=== PATIENT | female | born 1990 | race Caucasian/White ===

== ENCOUNTER 2017-05-18 22:38 | Inpatient (IN) | payer BC, OTHER ==
[~2017-05-18] VITALS: Ht 180.3 cm; Wt 70.8 kg
[2017-05-18] MEDS ORDERED: DICYCLOMINE HCL 20 MG TABLET PO PRN (22:45)
[2017-05-18] MEDS ORDERED: BUPRENORPHINE HCL 2 MG TAB.SUBL SL PRN (22:45)
[2017-05-18] MEDS ORDERED: ACETAMINOPHEN 325 MG TABLET PO PRN (22:45)
[2017-05-18] MEDS ORDERED: LOPERAMIDE HCL 2 MG CAPSULE PO PRN ×2 (22:45)
[2017-05-18] MEDS ORDERED: DIAZEPAM 5 MG TABLET PO PRN (22:45)
[2017-05-18] MEDS ORDERED: MIRALAX 17 GM POWD.PACK PO PRN (22:45)
[2017-05-18] MEDS ORDERED: DIAZEPAM 10 MG TABLET PO PRN (22:45)
[2017-05-18] MEDS ORDERED: MAGNESIUM HYDROXIDE 30 ML LIQUID UDC PO PRN (22:45)
[2017-05-18] MEDS ORDERED: LORAZEPAM 2 MG/1 ML VIAL IM PRN (22:45)
[2017-05-18] MEDS ORDERED: MAG HYDROX/AL HYDROX/SIMETH 30 ML LIQUID UDC PO PRN (22:45)
[2017-05-18] MEDS ORDERED: diphenhydrAMINE 50 MG CAPSULE PO PRN (22:45)
[2017-05-18] MEDS ORDERED: ONDANSETRON 4 MG/2 ML VIAL IM PRN (22:45)
[2017-05-19 00:15] VITALS: BP 116/60
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
[2017-05-19 01:05] LABS: BASOPHILS % (AUTO) 0.6 % (0.0-2.0); EOSINOPHILS # (AUTO) 0.4 K/uL (0.0-0.7); EOSINOPHILS % (AUTO) 5.7 % (0.0-7.0); HEMATOCRIT 39.7 % (37-47); HEMOGLOBIN 13.1 G/DL (12.0-16.0); LYMPHOCYTES # (AUTO) 2.9 K/UL (0.8-4.8); LYMPHOCYTES % (AUTO) 41.3 % (20.5-51.5); MEAN CORPUSCULAR HEMOGLOBIN 27.9 UUG (27.0-31.0); MEAN CORPUSCULAR HGB CONC 33 g/dL (32.0-37.0); MEAN CORPUSCULAR VOLUME 84.6 FL (81.0-99.0); MONOCYTES # (AUTO) 0.4 K/UL (0.1-1.30); MONOCYTES % (AUTO) 5.7 % (0.0-11.0); NEUTROPHILS # (AUTO) 3.2 K/UL (1.8-8.9); NEUTROPHILS % (AUTO) 46.7 % (38.5-71.5); PLATELET COUNT (AUTO) 242 K/UL (150-450); WHITE BLOOD COUNT (AUTO) 6.9 K/UL (4.0-11.2)
[2017-05-19 01:18] LABS: ALANINE AMINOTRANSFERASE 80 U/L (14-59); ALKALINE PHOSPHATASE 61 U/L (50-136); ASPARTATE AMINOTRANSFERASE 41 U/L (15-37); BILIRUBIN,TOTAL 0.2 mg/dL (0.2-1.0); CARBON DIOXIDE 28 mmol/L (21-32); CHLORIDE 100 mmol/L (98-107); CREATININE 0.6 mg/dL (0.6-1.3); GLUCOSE 110 mg/dL (74-106); MAGNESIUM 1.9 mg/dL (1.8-2.4); POTASSIUM 3.9 mmol/L (3.5-5.1); TOTAL PROTEIN, SERUM 7.2 g/dL (6.4-8.2); UREA NITROGEN, BLOOD 15 mg/dL (7-18)
[2017-05-19 01:29] LABS: ETHANOL < 3 MG/DL (0-0)
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
[2017-05-19] MEDS ORDERED: ALBU8.5H8 INH (02:37)
[2017-05-19] MEDS ORDERED: PARO25TA16 PO (02:37)
[2017-05-19] MEDS ORDERED: PRAZ5CAP2 PO (02:37)
[2017-05-19] MEDS ORDERED: MIRT30TA PO (02:37)
[2017-05-19] MEDS ORDERED: CARI350T PO (02:37)
[2017-05-19 02:46] LABS: *AMPHETAMINE, URINE NEGATIVE (NEGATIVE); *BARBITURATE, URINE NEGATIVE (NEGATIVE); *CANNABINOID, URINE NEGATIVE (NEGATIVE); *COCCAINE, URINE POSITIVE (NEGATIVE); *OPIATE, URINE POSITIVE (NEGATIVE); *PHENCYCLIDINE SCREEN,URINE NEGATIVE (NEGATIVE)
[2017-05-19 03:00] LABS: *URINE HCG, QUAL NEGATIVE (NEGATIVE)
[2017-05-19 04:00] VITALS: BP 111/68
--- NOTE | 2017-05-19 04:00 | NUR ---
0400 COWS and CIWA deferred COWS and CIWA ordered Q4HWA. Pt is lying in bed resting with eyes closed. Respirations even and unlabored. Vital signs obtained. Safety measures in place.
--- NOTE | 2017-05-19 07:15 | NUR ---
END OF SHIFT Report provided to day shift nurse. Pt is lying in bed resting. He is a 20 yo male admitted to [facility] on 05/16 for Opiate dependence. He is A&O x4 and ambulatory. NKA, full code status, and on a regular diet. PMH of seizure x2 last year not r/t withdrawal. On admission he reported using heroin 0.5-1 gram per day and marijuana. 4 day subutex taper started 05/17. PRN Seroquel administered. Last COWS 4. He drank 480mL and slept for 7 hours. Fall and seizure precautions in place. Bed is down with call light in reach.
--- NOTE | 2017-05-19 07:25 | NUR ---
END OF SHIFT Report provided to day shift nurse. Pt is lying in bed resting. She is a 26 yo female admitted to [facility] today at 0057 for BZD and Opiate dependence. Last used 05/18 at 2130. Minimal s/s of withdrawal. COWS 3 and CIWA 1 admission. No medications administered. She drank 500mL and slept for 4 hours.
--- NOTE | 2017-05-19 07:30 | NUR ---
START OF SHIFT Pt is a 26 yr old female, AA&OX3. Pt is a newly admit to [facility] for Benzo/Opiate Dependence and is on 5 day Valium and 5 days Subutex taper starting today on 05/19/17. Received report from overnight houseperson nurse. Pt is full code, vegetarian diet and allergies to Latex. No PRN's were given during the night. Last COWS score was 3 and CIWA score was 1. Pt slept for 4 hrs. Pt is on fall and seizure precautions. Pt is currently in bed resting with respirations even and unlabored. bed kept in low position and locked with side rails up x2. Call light is within reach. Will continue to monitor.
[2017-05-19 08:00] VITALS: BP 102/61
[2017-05-19] MEDS: CLONIDINE HCL 0.1 MG TABLET PO PRN ×2 (08:35→17:32)
[2017-05-19] MEDS: METHOCARBAMOL 750 MG TABLET PO PRN ×2 (08:35→17:32)
[2017-05-19] MEDS: IBUPROFEN 600 MG TABLET PO PRN ×2 (08:35→17:32)
--- NOTE | 2017-05-19 08:35 | NUR ---
PRN GIVEN/ REFUSED MEDICATION Pt c/o severe general body aches 8/10 and increase anxiety. Clonidine 0.1mg PO PRN, Motrin 600mg PO PRN, and Robaxin 750mg PO PRN was given as ordered. Medication jacobo well. Encouraged increase fluid intake. Pt also refused to take Subutex 4mg SL as scheduled at 0900. COWS score was noted at 14 at 0800. Pt states she feels she is not ready to take Subutex. Dr. Robison was made aware.
[2017-05-19] MEDS: BUPRENORPHINE HCL 2 MG TAB.SUBL SL SCH ×4 (08:36→21:00)
[2017-05-19] MEDS ORDERED: TUBERCULIN,PURIF.PROT.DERIV. 5 TU/0.1 ML TEST ID ONE (09:00)
[2017-05-19] MEDS ORDERED: DIAZEPAM 10 MG TABLET PO SCH (09:00)
--- NOTE | 2017-05-19 09:35 | NUR ---
PRN RE-ASSESSMENT Clonidine PRN, Motrin PRN and Robaxin PRN was mildly effective. Pt continues to c/o muscle aching and anxiety. Pt was encouraged to attend group . Will continue to monitor.
[2017-05-19 12:00] VITALS: BP 132/70
[2017-05-19] MEDS ORDERED: PROAIR INH PRN (12:00)
[2017-05-19] MEDS: PHENOBARBITAL 60 MG TABLET PO SCH ×2 (13:17→15:29)
--- NOTE | 2017-05-19 14:15 | NUR ---
PRN GIVEN Pt c/o increase anxiety. CIWA score was 7. Valium 5mg PO PRN was given as ordered. Medication jacobo well. Will continue to monitor.
[2017-05-19] MEDS ORDERED: GABAPENTIN 300 MG CAPSULE PO ONE (15:00)
--- NOTE | 2017-05-19 15:15 | NUR ---
PRN RE-ASSESSMENT Valium 5mg PO PRN was effective. CIWA score is 4. 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 Encouraged increase fluid intake. Will continue to monitor.
[2017-05-19 16:00] VITALS: BP 126/85
--- NOTE | 2017-05-19 17:32 | NUR ---
PRN GIVEN Pt c/o anxiety and sever muscle aching 10/10. Facial grimacing is observed. Clonidine 0.1mg PO PRN, Robaxin 750mg PO PRN and Motrin 600mg PO PRN. Medication was jacobo well. Encouraged increased fluid intake. will continue to monitor.
[2017-05-19] MEDS: DIAZEPAM 10 MG TABLET PO PRN (18:43)
[2017-05-19] MEDS: ONDANSETRON ODT 4 MG TAB.RAPDIS SL PRN (18:48)
--- NOTE | 2017-05-19 19:00 | NUR ---
PRN'S GIVEN/END OF SHIFT Pt was observed with increase anxiety and noted with episodes of crying. Pt stating "I am withdrawing from benzo's" Pt is observed with fine tremors and facial sweats and c/o nausea. CIWA score was 14. Valium 10mg PO PRN was given at 1843 and Zofran 4mg SL PRN was given at 1848. Medication jacobo well. Pt was encouraged to drink plenty of fluids. Pt is on fall and seizure precautions. Call light is within reach. Last COWS score was 10 at 1600. Endorsed to shift nurse manager nurse to continue to monitor.
--- NOTE | 2017-05-19 19:45 | NUR ---
START OF SHIFT Received report from day shift nurse. Pt is walking in the halls. She is a 26 yo female admitted to [facility] early today for Opiate, BZD, and Soma dependence. She is A&O x4 and ambulatory. Allergic to latex, full code status, and on a regular vegetarian diet. PMH of asthma, seizures, migraines, chronic back pain, insomnia, anxiety, depression, and PTSD. On admission she reported using xanax 2mg per day, klonopin 4mg per day, heroin 2-6 grams per day, and Soma 350mg 6 tabs per day. 5 day phenobarbital taper started today. 5 day Subutex taper scheduled to start today and patient has refused all doses so far. She is tearful at times, reports anxiety, and back pain. Provided support. Fall and seizure precautions in place. Bed is down with call light in reach.
--- NOTE | 2017-05-19 19:46 | NUR ---
PRN Valium and Zofran reassessment PRN Zofran effective. Pt reports nausea is relieved. PRN Valium effective. Pt reports feeling somewhat more relaxed. Tremors are reduced and she is less agitated. CIWA score 4.
[2017-05-19 20:00] VITALS: BP 128/73
[2017-05-19] MEDS ORDERED: PHENOBARBITAL 60 MG TABLET PO SCH (21:00)
[2017-05-19] MEDS: PRAZOSIN HCL 1 MG CAPSULE PO SCH (21:00)
[2017-05-19] MEDS ORDERED: MIRTAZAPINE 15 MG TABLET PO SCH (21:00)
[2017-05-19] MEDS: GABAPENTIN 300 MG CAPSULE PO SCH (21:45)
[2017-05-20] VITALS (7 sets, daily range): BP systolic 99–135; BP diastolic 62–88
--- NOTE | 2017-05-20 | NUR ---
0000 COWS and CIWA deferred COWS and CIWA ordered Q4HWA. Pt is lying in bed resting with eyes closed. Respirations even and unlabored. Vital signs obtained. Safety measures in place.
[2017-05-20] MEDS ORDERED: BUPRENORPHINE HCL 2 MG TAB.SUBL SL ONE ×2 (05:15→05:33)
--- NOTE | 2017-05-20 05:22 | NUR ---
One time Subutex Pt woke up and reported chills, hot and cold flashes, body aches, and runny nose. She is observed to be fidgety with moderate tremors, flushed skin, and pupils so dilated. COWS score 24. One time Subutex administered per orders.
--- NOTE | 2017-05-20 05:52 | NUR ---
PRN Subutex reassessment PRN Subutex somewhat effective. Pt reports chills and hot/cold flashes have decreased. Tremors are reduced. COWS score 12.
[2017-05-20] MEDS: METHOCARBAMOL 750 MG TABLET PO PRN (06:05)
[2017-05-20] MEDS: ONDANSETRON ODT 4 MG TAB.RAPDIS SL PRN (06:05)
[2017-05-20] MEDS: DIAZEPAM 10 MG TABLET PO PRN (06:05)
--- NOTE | 2017-05-20 06:06 | NUR ---
PRN Valium, Zofran, Bentyl, and Robaxin Pt reports increased anxiety, nausea, and stomach cramps. She is observed to be restless. CIWA score 11. PRN Valium, Zofran, Bentyl, and Robaxin administered.
--- NOTE | 2017-05-20 07:06 | NUR ---
PRN Valium, Zofran, Bentyl, and Robaxin reassessment PRN's effective. Pt is lying in bed resting with eyes closed. Respirations even and unlabored. Unable to reassess COWS and CIWA. Safety measures in place.
--- NOTE | 2017-05-20 07:55 | NUR ---
Start of shift note; Received report from night nurse. Patient is a 26 year old female admitted on 05/18/17 for Benzodiazepine and Opiate dependence. Patient was placed on a Phenobarbital and Subutex tapers. Patient reported history of asthma, seizures, migraines, insomnia, anxiety, depression, PTSD, night tremors and chronic back pain. Patient's last COWS is 12 and last CIWA is 11 per endorsement.Patient is allergic to latex. Patient is on fall and seizure precaution. Bed in lowest position, call light within reach.
[2017-05-20] MEDS: BUPRENORPHINE HCL 2 MG TAB.SUBL SL SCH ×3 (08:55→20:03)
[2017-05-20] MEDS: PAROXETINE HCL 20 MG TABLET PO SCH (08:55)
[2017-05-20] MEDS: PHENOBARBITAL 60 MG TABLET PO SCH ×3 (08:55→20:01)
[2017-05-20] MEDS: GABAPENTIN 300 MG CAPSULE PO SCH ×3 (08:56→20:02)
[2017-05-20] MEDS ORDERED: DIAZEPAM 10 MG TABLET PO SCH (09:00)
[2017-05-20] MEDS: DICYCLOMINE HCL 20 MG TABLET PO SCH ×2 (14:10→20:03)
[2017-05-20] MEDS: BACLOFEN 10 MG TABLET PO SCH ×2 (14:10→20:02)
[2017-05-20] MEDS ORDERED: CLONIDINE HCL 0.1 MG TABLET PO ONE (15:00)
--- NOTE | 2017-05-20 18:11 | NUR ---
End of shift note; Patient is AOX4. Patient is a 26 year old female admitted on 05/18/17 for Benzodiazepine and Opiate dependence. Patient was placed on a Phenobarbital and Subutex tapers. Patient reported history of asthma, seizures, migraines, insomnia, anxiety, depression, PTSD, night tremors and chronic back pain. Patient is allergic to latex. Patient is on fall and seizure precaution. Bed in lowest position, call light within reach. Patient's last COWS score is 7 and CIWA score is 6. Patient remained compliant with treatment plan and medication regime. Medications were effective in reducing withdrawal symptoms. Met all needs.
--- NOTE | 2017-05-20 19:00 | NUR ---
Start of Shift Notes: Report received from day shift nurse. Pt is a 26F, admitted for Opiate/Benzo/Soma Dependence on 05/19/17. Pt was in the room upon the start of shift. Pt is AOx4 without s/s of acute distress. Pt currently c/o generalized body aches at this time. Pt is full code, on regular diet, and on fall/seizure precautions. Pt noted with allergy to Latex and natural rubber. Pt reports hx of Asthma, Seizures, Migraines, Insomnia, Anxiety, Depression, PTSD, and Night Tremors. Pt is currently on 5-day Subutex taper and 5-day Phenobarbital taper to manage withdrawal symptoms. Per day shift nurse last COWS was 7 and last CIWA was 6 at 1600. Bed in lowest position. Side rails up x2. Call light functioning and within reach. All needs attended and met. Will continue to monitor.
--- NOTE | 2017-05-20 19:25 | NUR ---
Toradol PRN: Pt c/o 04/05 Generalized body pain especially on lower back. Pt stated that she also feels sciatica pain. 30mg Toradol IM PRN given as ordered. Will continue to monitor.
[2017-05-20] MEDS: KETOROLAC TROMETHAMINE 30 MG INJ IM PRN (19:29)
[2017-05-20] MEDS: CLONIDINE HCL 0.1 MG TABLET PO SCH (20:02)
[2017-05-20] MEDS: PRAZOSIN HCL 1 MG CAPSULE PO SCH (20:09)
--- NOTE | 2017-05-20 20:30 | NUR ---
Toradol PRN Reassessment: Pt stated that the Toradol in combination with the routine 2100 dose medications were effective in dealing with pain. Pain level 0/10 at this time. Will continue to monitor.
[2017-05-20] MEDS ORDERED: MIRTAZAPINE 15 MG TABLET PO SCH (21:00)
[2017-05-21] VITALS: BP 121/70
[2017-05-21 04:00] VITALS: BP 114/56
[2017-05-21 05:06] LABS: HEPATITIS B SURFACE AG Negative (Negative)
[2017-05-21] MEDS: CLONIDINE HCL 0.1 MG TABLET PO PRN (06:58)
[2017-05-21 07:00] VITALS: BP 128/87
[2017-05-21] MEDS: KETOROLAC TROMETHAMINE 30 MG INJ IM PRN (07:06)
--- NOTE | 2017-05-21 07:06 | NUR ---
Toradol PRN and Clonidine PRN: Pt c/o generalized body pain and anxiety. Pain 10/10. Toradol PRN and Clonidine PRN given as ordered. Will endorse reassessment to day shift nurse.
--- NOTE | 2017-05-21 07:25 | NUR ---
End of Shift Notes: Pt is 26F, admitted for Opiate/Benzo/Soma Dependence on 05/19/17. Pt is AOx4 without s/s of acute distress. Pt is full code, on regular diet, and on fall/seizure precautions. Pt noted with allergy to Latex and natural rubber. Pt reports hx of Asthma, Seizures, Migraines, Insomnia, Anxiety, Depression, PTSD, and Night Tremors. Pt is currently on 5-day Subutex taper and 5-day Phenobarbital taper to manage withdrawal symptoms. Pt slept for 8 hours. Respirations even and unlabored. Last COWS score was 2 and last CIWA score was 3 at 0400. Pt c/o generalized body pain and anxiety during the shift. PRN Toradol and PRN Clonidine given. No N/V noted during the shift. Fall and Sz precautions observed. Bed in lowest position. Side rails up x2. Call light functioning and within reach. All needs attended and met. Will endorse to day shift nurse.
[2017-05-21 08:00] VITALS: BP 119/65
--- NOTE | 2017-05-21 08:06 | NUR ---
Start of shift note; Received report from night nurse. Patient is a 26 year old female admitted on 05/18/17 for Benzodiazepine and Opiate dependence. Patient was placed on a Phenobarbital and Subutex tapers. Patient reported history of asthma, seizures, migraines, insomnia, anxiety, depression, PTSD, night tremors and chronic back pain. Patient's last COWS is 2 and last CIWA is 3 per endorsement.Patient is allergic to latex. Patient stated her Toradol & Clonidine were effective, slight improvement of pain noted currently rated 8/10 on pain scale and less agitation noted. Patient is on fall and seizure precaution. Bed in lowest position, call light within reach.
--- NOTE | 2017-05-21 08:48 | NUR ---
MD communication; Patient stated "I want to leave AMA, i don't want to stay here anymore." Redirected patient as needed. Educated patient regarding the risk and consequences of leaving AMA and not completing treatment plan, patient verbalized understanding. MD was notified.
[2017-05-21] MEDS ORDERED: DIAZEPAM 5 MG TABLET PO SCH (09:00)
[2017-05-21] MEDS ORDERED: BUPRENORPHINE HCL 2 MG TAB.SUBL SL SCH ×2 (09:00→15:00)
[2017-05-21] MEDS ORDERED: PHENOBARBITAL 60 MG TABLET PO SCH (09:00)
[2017-05-21] MEDS: BACLOFEN 10 MG TABLET PO SCH (09:19)
[2017-05-21] MEDS: PAROXETINE HCL 20 MG TABLET PO SCH (09:19)
[2017-05-21] MEDS: GABAPENTIN 300 MG CAPSULE PO SCH (09:19)
[2017-05-21] MEDS: DICYCLOMINE HCL 20 MG TABLET PO SCH (09:19)
[2017-05-21 09:20] VITALS: BP 119/68
[2017-05-21] MEDS: CLONIDINE HCL 0.1 MG TABLET PO SCH (09:20)
--- NOTE | 2017-05-21 09:30 | NUR ---
Medication refusal; Patient refused to take Subutex at this time, patient stated " Subutex does not really work for me". MD made aware. Patient is still stating that she wants to leave AMA.
--- NOTE | 2017-05-21 10:45 | NUR ---
AMA note; Patient verbalized that she wants to leave AMA. Patient seen and educated by multiple staff members, MD, administration, nurse. Redirected patient as needed. Patient still decided to leave AMA. Educated patient regarding risk and consequences of leaving AMA, patient verbalized understanding. Patient was escorted out by NUT SHELLER MACHINE OPERATOR out of the hospital at exactly 1045 on 05/21/17. Patient denies suicidal ideations and tendencies. Patient left in a stable condition.
[2017-05-22] MEDS ORDERED: DIAZEPAM 5 MG TABLET PO SCH (09:00)
[2017-05-22] MEDS ORDERED: PHENOBARBITAL 60 MG TABLET PO SCH (09:00)
[2017-05-22] MEDS ORDERED: BUPRENORPHINE HCL 2 MG TAB.SUBL SL SCH (09:00)
[2017-05-23] MEDS ORDERED: PHENOBARBITAL 60 MG TABLET PO SCH (09:00)
[2017-05-23] MEDS ORDERED: DIAZEPAM 5 MG TABLET PO SCH (09:00)
[2017-05-23] MEDS ORDERED: BUPRENORPHINE HCL 2 MG TAB.SUBL SL SCH (09:00)
== END 2017-05-21 10:45 | disposition left against medical advice (07) | DRG 894 ==
LOC: SRC 22:38
PROVIDERS: ADMIT Internal Medicine; ATTEND Internal Medicine
PROC: HZ2ZZZZ Detoxification Services for Substance Abuse Treatment (ICD-10-PCS; principal; 2017-05-18)
PROC: HZ41ZZZ Group Counseling for Substance Abuse Treatment, Behavioral (ICD-10-PCS; 2017-05-19)
DX: F13.232 Sedative, hypnotic or anxiolytic dependence with withdrawal with perceptual disturbance (principal); F31.4 Bipolar disorder, current episode depressed, severe, without psychotic features; F14.10 Cocaine abuse, uncomplicated; F11.23 Opioid dependence with withdrawal; G89.29 Other chronic pain; G43.909 Migraine, unspecified, not intractable, without status migrainosus; F43.10 Post-traumatic stress disorder, unspecified; J45.20 Mild intermittent asthma, uncomplicated; G47.00 Insomnia, unspecified; Z91.040 Latex allergy status; Z81.8 Family history of other mental and behavioral disorders; Z80.8 Family history of malignant neoplasm of other organs or systems; F17.210 Nicotine dependence, cigarettes, uncomplicated; M54.40 Lumbago with sciatica, unspecified side; R73.9 Hyperglycemia, unspecified; R74.0 Nonspecific elevation of levels of transaminase and lactic acid dehydrogenase [LDH]
CPT/HCPCS: 36415; 70030-TC; 80307; 80346; 80353; 80361; 83735; 84703; 85025; 86580; 86592; 86705; 86803; 87340; 87806; A4663; G0480; J1885; J8499; Q0162